=== PATIENT | female | born 1955 | race Caucasian/White ===

== ENCOUNTER 2018-05-16 11:39 | Observation (INO) | payer OTHER ==
[2018-05-16] MEDS: SOD CHLORIDE 0.9% 1,000 ML IV ×2 (06:00→19:20)
[2018-05-16] MEDS: CEFAZOLIN 2 GM/50 ML (PMX) 50 ML IVPB (06:00)
[2018-05-16 14:45] LABS: ADD MAN DIFF? NO
[2018-05-16 14:47] LABS: BASOPHILS % 0.3 % (0.0-2.0); EOSINOPHILS # 0.1 10^3/ul (0.0-0.5); EOSINOPHILS % 1.3 % (0.0-7.0); HEMATOCRIT 37.2 % (37.0-47.0); HEMOGLOBIN 12.9 g/dl (12.0-16.0); LYMPHOCYTES # 1.2 10^3/ul (0.8-2.9); LYMPHOCYTES % 31.5 % (15.0-51.0); MEAN CORPUSCULAR HEMOGLOBIN 31.3 pg (29.0-33.0); MEAN CORPUSCULAR HGB CONC 34.7 g/dl (32.0-37.0); MEAN CORPUSCULAR VOLUME 90.3 fl (82.0-101.0); MEAN PLATELET VOLUME 10.2 fl (7.4-10.4); MONOCYTE # 0.3 10^3/ul (0.3-0.9); MONOCYTES % 7.6 % (0.0-11.0); NEUTROPHIL # 2.3 10^3/ul (1.6-7.5); PLATELET COUNT 202 10^3/UL (140-415); RED BLOOD COUNT 4.12 10^6/ul (4.20-5.40); RED CELL DISTRIBUTION WIDTH 12.2 % (11.5-14.5)
[2018-05-16 14:47] LABS: WHITE BLOOD COUNT 3.8 10^3/ul (4.8-10.8)
[2018-05-16 14:51] LABS: HOLD TRANSMISSIONS 1
[2018-05-16 15:12] LABS: ALANINE AMINOTRANSFERASE 22 IU/L (13-69); ALBUMIN 4.2 g/dl (3.3-4.9); ALBUMIN/GLOBULIN RATIO 1.13; ALKALINE PHOSPHATASE 66 IU/L (42-121); ANION GAP 16 (8-16); ASPARTATE AMINO TRANSFERASE 22 IU/L (15-46); BILIRUBIN,INDIRECT 0.8 mg/dl (0-1.1); BILIRUBIN,TOTAL 0.8 mg/dl (0.2-1.3); CARBON DIOXIDE 25 mmol/L (21-31); CHLORIDE 108 mmol/L (97-110); GLUCOSE 86 mg/dl (70-220); INR 0.93; PARTIAL THROMBOPLASTIN TIME 27.5 Sec (25.0-35.0); PROTIME 12.5 Sec (11.9-14.9); TOTAL PROTEIN 7.9 g/dl (6.1-8.1)
[2018-05-16 15:19] LABS: BLOOD UREA NITROGEN 15 mg/dl (7-20); CALCIUM 9.1 mg/dl (8.4-10.2); CREATININE 0.52 mg/dl (0.44-1.00); POTASSIUM 3.5 mmol/L (3.5-5.1); SODIUM 145 mmol/L (135-144)
[2018-05-16] MEDS ORDERED: ISOSULFAN BLUE 1% 5 ML INJ SC (17:15)
[2018-05-16] MEDS ORDERED: LIDOCAINE 1% (MDV) 20 ML INJ (17:26)
[2018-05-16] MEDS ORDERED: MIDAZOLAM 1 MG/ML 2 ML INJ (17:26)
[2018-05-16] MEDS ORDERED: PROPOFOL 20 ML (17:26)
[2018-05-16] MEDS ORDERED: CEFAZOLIN 1 GM INJ (18:25)
[2018-05-16] MEDS ORDERED: ONDANSETRON 4 MG INJ (18:26)
[2018-05-16] MEDS ORDERED: ACETAMINOPHEN 1000MG/100ML IV 100 ML IVPB (18:30)
[2018-05-16] MEDS ORDERED: ONDANSETRON 4 MG INJ IV (18:30)
[2018-05-16] MEDS ORDERED: HYDROmorphONE 1 MG/5 ML IV SYRINGE IV ×2 (18:58→19:00)
[2018-05-16] MEDS ORDERED: FENTAnyl 50 MCG/ML VIAL IV (19:00)
[2018-05-16] MEDS: HYDROmorphONE 1 MG/5 ML IV SYRINGE IV ×2 (19:09→19:37)
[2018-05-16] MEDS: ONDANSETRON 4 MG INJ IV (19:37)
[2018-05-16] MEDS: D5W-0.45 NACL + KCL 20 MEQ 1,000 ML IV (21:11)
[2018-05-16] MEDS: morphine 2 MG INJ IV (21:14)
[2018-05-17] MEDS ORDERED: HYDROCODONE/APAP (5/325) TAB PO
[2018-05-17] MEDS: D5W-0.45 NACL + KCL 20 MEQ 1,000 ML IV ×3 (02:28→10:28)
[2018-05-17] MEDS: morphine 2 MG INJ IV ×2 (04:52→10:50)
== END 2018-05-17 13:35 | disposition home or self-care (01) ==
LOC: SDS 11:39 → MS2 20:30
DX: D05.12 Intraductal carcinoma in situ of left breast (principal)
CPT/HCPCS: 19301; 71045; 80053; 85025; 85610; 85730; 88307; 88331; 88342; 93005

== ENCOUNTER 2018-07-31 08:12 | Day surgery (SDC) | payer OTHER ==
[2018-07-31] MEDS: CEFAZOLIN 1 GM/50 ML (PMX) 50 ML IVPB ×2 (09:00→11:30)
[2018-07-31] MEDS: SOD CHLORIDE 0.9% 1,000 ML IV (11:00)
[2018-07-31] MEDS: POLYMYXIN/BACITRACIN 1L IRRIG IRR (12:00)
[2018-07-31] MEDS: FENTAnyl 50 MCG/ML VIAL (12:00)
[2018-07-31] MEDS: MIDAZOLAM 1 MG/ML 2 ML INJ (12:10)
[2018-07-31] MEDS: LIDOCAINE 1%/EPI 30 ML INJ (12:10)
[2018-07-31] MEDS: HEPARIN 1000 UNITS/ML 10 ML INJ (12:30)
== END 2018-07-31 15:00 | disposition home or self-care (01) ==
LOC: SDS 08:12
DX: C50.912 Malignant neoplasm of unspecified site of left female breast (principal)
CPT/HCPCS: 36561; 71045; 76942; 93306

== ENCOUNTER 2019-04-17 08:39 | Inpatient (IN) | payer OTHER ==
[2019-04-17] MEDS: CEFAZOLIN 2 GM/50 ML (PMX) 50 ML IVPB ×2 (08:00→18:44)
[2019-04-17 09:29] LABS: ADD MAN DIFF? NO
[2019-04-17 09:32] LABS: BASOPHILS % 0.4 % (0.0-2.0); EOSINOPHILS % 1.5 % (0.0-7.0); HEMATOCRIT 35.8 % (37.0-47.0); HEMOGLOBIN 12.2 g/dl (12.0-16.0); LYMPHOCYTES # 0.9 10^3/ul (0.8-2.9); LYMPHOCYTES % 32.6 % (15.0-51.0); MEAN CORPUSCULAR HEMOGLOBIN 31.1 pg (29.0-33.0); MEAN CORPUSCULAR HGB CONC 34.1 g/dl (32.0-37.0); MEAN CORPUSCULAR VOLUME 91.3 fl (82.0-101.0); MONOCYTE # 0.3 10^3/ul (0.3-0.9); MONOCYTES % 10.6 % (0.0-11.0); NEUTROPHIL # 1.5 10^3/ul (1.6-7.5); NEUTROPHILS % 54.9 % (39.0-77.0); PLATELET COUNT 194 10^3/UL (140-415); RED BLOOD COUNT 3.92 10^6/ul (4.20-5.40); RED CELL DISTRIBUTION WIDTH 12.4 % (11.5-14.5)
[2019-04-17 09:51] LABS: INR 0.89; PARTIAL THROMBOPLASTIN TIME 26.9 Sec (23.0-35.0); PROTIME 12.1 Sec (11.9-14.9); PT RATIO 0.9
[2019-04-17] MEDS: SOD CHLORIDE 0.9% 1,000 ML IV (09:54)
[2019-04-17 09:55] LABS: ALANINE AMINOTRANSFERASE 20 IU/L (13-69); ALBUMIN 4.1 g/dl (3.3-4.9); ALBUMIN/GLOBULIN RATIO 1.13; ALKALINE PHOSPHATASE 50 IU/L (42-121); ANION GAP 7 (5-13); ASPARTATE AMINO TRANSFERASE 21 IU/L (15-46); BILIRUBIN,INDIRECT 0.7 mg/dl (0-1.1); BILIRUBIN,TOTAL 0.7 mg/dl (0.2-1.3); BLOOD UREA NITROGEN 16 mg/dl (7-20); CALCIUM 9.3 mg/dl (8.4-10.2); CARBON DIOXIDE 29 mmol/L (21-31); CHLORIDE 107 mmol/L (97-110); CREATININE 0.48 mg/dl (0.44-1.00); Estimated GFR > 60 mL/min (>60); GLUCOSE 89 mg/dl (70-220); POTASSIUM 4.1 mmol/L (3.5-5.1); SODIUM 143 mmol/L (135-144); TOTAL PROTEIN 7.7 g/dl (6.1-8.1)
[2019-04-17 10:09] LABS: HOLD TRANSMISSIONS 1
[2019-04-17 10:11] LABS: WHITE BLOOD COUNT 2.7 10^3/ul (4.8-10.8)
[2019-04-17] MEDS ORDERED: PROPOFOL 100 ML (10:25)
[2019-04-17] MEDS ORDERED: ROCURONIUM 50 MG INJ (10:29)
[2019-04-17] MEDS ORDERED: LIDOCAINE 2% (SDV) 5 ML INJ (10:29)
[2019-04-17] MEDS ORDERED: ONDANSETRON 4 MG INJ (12:24)
[2019-04-17] MEDS ORDERED: morphine 10 MG INJ (12:24)
[2019-04-17] MEDS ORDERED: DEXAMETHASONE 4 MG/ML 5 ML INJ (12:24)
[2019-04-17] MEDS ORDERED: NEOSTIGMINE 3 MG/3 ML SYRINGE (13:27)
[2019-04-17] MEDS ORDERED: GLYCOPYRROLATE 0.4 MG INJ (13:27)
[2019-04-17] MEDS ORDERED: CEFAZOLIN 1 GM INJ (13:34)
[2019-04-17] MEDS ORDERED: ONDANSETRON 4 MG INJ IV ×2 (14:00)
[2019-04-17] MEDS ORDERED: EPHEDrine 25 MG/5 ML SYG IV (14:00)
[2019-04-17] MEDS ORDERED: HYDROmorphONE 1 MG/ML SYG SC (14:00)
[2019-04-17] MEDS ORDERED: CEFAZOLIN 2 GM/50 ML (PMX) 50 ML IVPB (14:00)
[2019-04-17] MEDS ORDERED: DIPHENHYDRAMINE 50 MG INJ IV ×2 (14:00)
[2019-04-17] MEDS ORDERED: ACETAMINOPHEN 325 MG TAB PO (14:00)
[2019-04-17] MEDS ORDERED: MEPERIDINE 25 MG INJ IV (14:00)
[2019-04-17] MEDS ORDERED: ALBUTEROL 0.083% (NEB) 2.5 MG/3 ML AMP HHN (14:00)
[2019-04-17] MEDS ORDERED: LABETALOL HCL 20MG INJ IV (14:00)
[2019-04-17] MEDS ORDERED: hydrALAzine 20 MG INJ IV (14:00)
[2019-04-17] MEDS ORDERED: HYDROmorphONE 1 MG/5 ML IV SYRINGE IV ×3 (14:00)
[2019-04-17] MEDS ORDERED: FENTAnyl 50 MCG/ML VIAL IV (14:00)
[2019-04-17] MEDS ORDERED: MIDAZOLAM 1 MG/ML 2 ML INJ IV (14:00)
[2019-04-17] MEDS ORDERED: OXYCODONE/ACETAMINOPHEN (5/325) TAB PO ×2 (14:00)
[2019-04-17] MEDS ORDERED: METOCLOPRAMIDE 10 MG INJ IV (14:00)
[2019-04-17] MEDS ORDERED: KETOROLAC 15 MG INJ IV (14:00)
[2019-04-17] MEDS: FENTAnyl 50 MCG/ML VIAL IV ×2 (14:33→14:44)
[2019-04-17] MEDS: D5W-0.45 NACL + KCL 20 MEQ 1,000 ML IV ×2 (18:22→23:43)
[2019-04-17] MEDS: HYDROCODONE/APAP (5/325) TAB PO (19:24)
[2019-04-18] MEDS: CEFAZOLIN 2 GM/50 ML (PMX) 50 ML IVPB ×2 (03:59→10:51)
[2019-04-18 05:07] LABS: ADD MAN DIFF? NO
[2019-04-18 05:17] LABS: ABNORMAL IP MESSAGE 1; BASOPHILS % 0.2 % (0.0-2.0); HEMATOCRIT 31.3 % (37.0-47.0); LYMPHOCYTES # 0.6 10^3/ul (0.8-2.9); LYMPHOCYTES % 9.3 % (15.0-51.0); MEAN CORPUSCULAR HEMOGLOBIN 31.8 pg (29.0-33.0); MEAN CORPUSCULAR HGB CONC 35.1 g/dl (32.0-37.0); MEAN CORPUSCULAR VOLUME 90.5 fl (82.0-101.0); MEAN PLATELET VOLUME 10.1 fl (7.4-10.4); MONOCYTE # 0.5 10^3/ul (0.3-0.9); MONOCYTES % 7.2 % (0.0-11.0); NEUTROPHIL # 5.2 10^3/ul (1.6-7.5); PLATELET COUNT 190 10^3/UL (140-415); RED BLOOD COUNT 3.46 10^6/ul (4.20-5.40); RED CELL DISTRIBUTION WIDTH 12.1 % (11.5-14.5)
[2019-04-18 05:17] LABS: WHITE BLOOD COUNT 6.2 10^3/ul (4.8-10.8)
[2019-04-18 05:29] LABS: POSITIVE DIFF @See below
[2019-04-18 05:49] LABS: ANION GAP 6 (5-13); BLOOD UREA NITROGEN 12 mg/dl (7-20); CALCIUM 8.5 mg/dl (8.4-10.2); CARBON DIOXIDE 26 mmol/L (21-31); CHLORIDE 108 mmol/L (97-110); CREATININE 0.52 mg/dl (0.44-1.00); Estimated GFR > 60 mL/min (>60); GLUCOSE 130 mg/dl (70-220); SODIUM 140 mmol/L (135-144)
[2019-04-18] MEDS: D5W-0.45 NACL + KCL 20 MEQ 1,000 ML IV ×2 (06:33→22:31)
[2019-04-18] MEDS: HYDROCODONE/APAP (5/325) TAB PO (13:14)
[2019-04-19] MEDS: D5W-0.45 NACL + KCL 20 MEQ 1,000 ML IV (03:01)
[2019-04-19] MEDS: HYDROCODONE/APAP (5/325) TAB PO (03:43)
[2019-04-19 05:14] LABS: ADD MAN DIFF? NO
[2019-04-19 05:17] LABS: WHITE BLOOD COUNT 3.4 10^3/ul (4.8-10.8)
[2019-04-19 05:17] LABS: BASOPHILS % 0.3 % (0.0-2.0); EOSINOPHILS % 0.9 % (0.0-7.0); HEMATOCRIT 30.4 % (37.0-47.0); HEMOGLOBIN 10.6 g/dl (12.0-16.0); LYMPHOCYTES # 1.3 10^3/ul (0.8-2.9); LYMPHOCYTES % 38.6 % (15.0-51.0); MEAN CORPUSCULAR HEMOGLOBIN 32.1 pg (29.0-33.0); MEAN CORPUSCULAR HGB CONC 34.9 g/dl (32.0-37.0); MEAN CORPUSCULAR VOLUME 92.1 fl (82.0-101.0); MEAN PLATELET VOLUME 9.8 fl (7.4-10.4); MONOCYTE # 0.3 10^3/ul (0.3-0.9); MONOCYTES % 9.6 % (0.0-11.0); NEUTROPHIL # 1.7 10^3/ul (1.6-7.5); NEUTROPHILS % 50.6 % (39.0-77.0); PLATELET COUNT 152 10^3/UL (140-415); RED CELL DISTRIBUTION WIDTH 12.8 % (11.5-14.5)
[2019-04-19] MEDS: MINERAL OIL 30ML CUP PO (13:02)
[2019-04-19] MEDS: MAGNESIUM HYDROXIDE 30ML CUP PO (13:02)
== END 2019-04-19 14:45 | disposition home or self-care (01) | DRG 581 ==
LOC: REC 08:39 → MS1 15:19
PROC: 0HTV0ZZ Resection of Bilateral Breast, Open Approach (ICD-10-PCS; principal; 2019-04-17 10:00)
PROC: 07T60ZZ Resection of Left Axillary Lymphatic, Open Approach (ICD-10-PCS; 2019-04-17 10:00)
DX: C50.912 Malignant neoplasm of unspecified site of left female breast (principal); Z90.710 Acquired absence of both cervix and uterus; Z80.3 Family history of malignant neoplasm of breast; Z40.01 Encounter for prophylactic removal of breast
CPT/HCPCS: 71045; 80048; 80053; 85025; 85610; 85730; 88307; 93005

== ENCOUNTER → 2019-05-08 | Outpatient (CLI) | payer OTHER | END | disposition home or self-care (01) | LOC: EKG 10:40 | DX: C50.412 Malignant neoplasm of upper-outer quadrant of left female breast (principal) | CPT/HCPCS: 93306 ==